=== PATIENT | female | born 1950 | race Caucasian/White ===

== ENCOUNTER → 2018-08-26 | Outpatient (CLI) | payer MEDICARE ==
--- NOTE | 2018-08-27 12:44 | MM ---
Reason for exam: screening (asymptomatic). Last mammogram was performed 3 years and 5 months ago. History: Patient is postmenopausal. Excisional biopsy of both breasts, October 30, 2007. Stereotactic core biopsy, November 08, 2002. Cancelled Procedure, November 08, 2002. Excisional biopsy of the right breast, 1981. Physical Findings: A clinical breast exam by your physician is recommended on an annual basis and results should be correlated with mammographic findings. MG 3D Screening Mammo W/Cad Bilateral CC and MLO view(s) were taken. Prior study comparison: April 06, 2015, bilateral MG screening mammo w CAD. February 04, 2014, [facility] DIGITAL RIGHT MAMMOGRAM w/CAD. There are scattered fibroglandular densities. There is chronic nodularity bilaterally. No significant changes when compared with prior studies. ASSESSMENT: Benign, BI-RAD 2 RECOMMENDATION: Routine screening mammogram of both breasts in 1 year.
== END | disposition home or self-care (01) ==
LOC: RADMAMWWP 10:51
PROVIDERS: ATTEND Family Medicine
DX: Z12.31 Encounter for screening mammogram for malignant neoplasm of breast (principal)
CPT/HCPCS: 77063; 77067

== ENCOUNTER → 2020-09-12 | Outpatient (CLI) | payer MEDICARE ==
--- NOTE | 2020-09-18 11:08 | MM ---
Reason for exam: screening (asymptomatic). Last mammogram was performed 2 years and 1 month ago. History: Patient is postmenopausal. Excisional biopsy of both breasts, October 30, 2007. Stereotactic core biopsy, November 08, 2002. Cancelled Procedure, November 08, 2002. Excisional biopsy of the right breast, 1981. Physical Findings: A clinical breast exam by your physician is recommended on an annual basis and results should be correlated with mammographic findings. MG 3D Screening Mammo W/Cad Bilateral CC and MLO view(s) were taken. Prior study comparison: August 26, 2018, bilateral MG 3d screening mammo w/cad. April 06, 2015, bilateral MG screening mammo w CAD. The breast tissue is heterogeneously dense. This may lower the sensitivity of mammography. Finding #1: There is a lobulated mass in the left breast. Finding #2: There are calcifications in both breasts. No significant changes in finding since August 26, 2018 and April 06, 2015. ASSESSMENT: Benign, BI-RAD 2 RECOMMENDATION: Routine screening mammogram of both breasts in 1 year.
== END | disposition home or self-care (01) ==
LOC: RADMAMWWP 16:21
PROVIDERS: ATTEND Family Medicine
DX: Z12.31 Encounter for screening mammogram for malignant neoplasm of breast (principal)
CPT/HCPCS: 77063; 77067

== ENCOUNTER → 2022-01-22 | Outpatient (CLI) | payer MEDICARE ==
[2022-01-22 10:11] VITALS: BP 164/83; PULSE 79; RESP 17; TEMP 98.3
--- NOTE | 2022-01-22 11:17 | P.HPOB ---
History of Present Illness H&P Date: 01/22/22 Chief Complaint: The patient is here for her routine gynecologic exam and ma mmogram. This is a 71-year-old 0102 with an LMP of 1998. The patient is here to establish with this office. It has been about 6 years since her last pelvic exam. She states she has noticed a lump on the right vulva over the past 6 months. She states it is about Pea size. It is not really painful, but occasionally does feel irritated. She has had small lumps like these before, but they usually went away. She has also noticed some generalized vulvar pruritus over the past 6 months. She denies vaginal discharge or vaginal odor. She has tried [id number] Vagisil which did not significantly help. She is otherwise without complaints and denies any was menopausal bleeding. Review of Systems The patient has gained 50 pounds over the last few years. She says she tends to be a "stress eater". She denies respiratory, cardiac, or G.I. problems. Past Medical History Past Medical History: Hypertension, Sleep Apnea/CPAP/BIPAP Additional Past Medical History / Comment(s): Obesity. 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 History of Any Multi-Drug Resistant Organisms: None Reported Past Surgical History: Breast Surgery, Tubal Ligation Additional Past Surgical History / Comment(s): 2 benign breast biopsies. D&C. Colonoscopy 2016(normal per pt). Past Psychological History: Depression Smoking Status: Never smoker Past Alcohol Use History: None Reported Past Drug Use History: None Reported Additional History: She has been since 1970 and is not sexually active. Her is disabled. She is retired. - Past Family History Mother Family Medical History: Dementia Additional Family Medical History / Comment(s): Maternal aunt had breast cancer. Father Family Medical History: Hypertension, Myocardial Infarction ([place]) Medications and Allergies Home Medications Medication Instructions Recorded Confirmed Type lisinopriL 10 mg PO DAILY 01/22/22 01/22/22 History Allergies Allergy/AdvReac Type Severity Reaction Status Date / Time No Known Allergies Allergy Unverified 01/22/22 09:56 Exam Vital Signs Temp Pulse Resp BP Pulse Ox 01/22/22 10:07 98.3 F 79 17 164/83 97 Intake and Output 02/28/22 03/01/22 03/01/22 22:59 06:59 14:59 Other: Weight 104.326 kg Height 5 feet 5 inches, weight 230 pounds, BMI 38.3. This is a well-developed well-nourished white female who is alert and oriented times 3 in no acute distress. HEENT: Within normal limits. NECK: Supple without mass or thyromegaly. CHEST AND LUNGS: Clear to auscultation. HEART: Regular rate and rhythm. BREASTS: Are without mass or discharge. AXILLARY EXAM: Negative for adenopathy. BACK: Negative for CVA tenderness. ABDOMEN: Soft, nontender, without palpable masses. PELVIC EXAM: External genitalia reveals mild atrophy with generalized erythema without pallor. There is a 6 mm benign-appearing inclusion cyst in the right labia majora which is very benign appearing and nontender. There is a 3 mm benign-appearing inclusion cyst in the left labia majora which is also nontender. Cervix and vagina appear normal with mild to moderate atrophy. There is no unusual discharge. There is no evidence of prolapse. The uterus is midposition, nongravid size and nontender. There are no palpable adnexal masses or tenderness. Bimanual examination is somewhat limited secondary to her size. RECTAL EXAM: Rectovaginal exam is negative for mass or tenderness and is negative for occult blood. EXTREMITIES: Nontender. IMPRESSION: 1. 71-year-old menopausal female with acute vulvitis which is generalized. At this time I doubt lichen sclerosus of the vulva. Differential diagnosis will also include Ana vaginitis and nonspecific vulvitis. 2. Benign-appearing vulvar inclusion cysts. PLAN: 1. Pap smear cotest was performed. She does not have a history of cervical neoplasia and does believe she had regular Pap smears up until age 65. She states I am probably not going to be able to obtain the records since she has had them in various locations. If this Pap smear cotest is negative, we will plan on repeating it in approximately 5 years and if they are both negative, we will discontinue Pap smears altogether. 2. Self breast awareness was discussed with the patient. We have also discusse d symptoms associated with inflammatory breast cancer. 3. Screening mammogram will be done today. 4. Affirm vaginitis panel was obtained from the vagina. 5. We have had a long discussion regarding the vulvar itching. I have recommended that she avoid over washing, avoid scratching and rubbing, avoid chlorinated water such as pools or hot tubs. Trial of Kenalog 0.1% cream twice a day as needed. She will also use a thin layer of petroleum jelly once a day as a protective layer. The electronic prescription for Kenalog cream will be sent to [facility] pharmacy in [place]. 6. She will return if symptoms are not improving or if problems. 7. The patient was advised to return in 1-2 years for her well woman examination and as needed.
--- NOTE | 2022-01-23 09:10 | MM ---
Reason for exam: screening (asymptomatic). Last mammogram was performed 1 year and 4 months ago. History: Patient is postmenopausal. Family history of breast cancer in maternal aunt at age 87. Excisional biopsy of both breasts, October 30, 2007. Stereotactic core biopsy, November 08, 2002. Cancelled Procedure, November 08, 2002. Excisional biopsy of the right breast, 1981. Physical Findings: A clinical breast exam by your physician is recommended on an annual basis and results should be correlated with mammographic findings. MG 3D Screening Mammo W/Cad Bilateral CC and MLO view(s) were taken. Prior study comparison: September 12, 2020, bilateral MG 3d screening mammo w/cad. August 26, 2018, bilateral MG 3d screening mammo w/cad. The breast tissue is heterogeneously dense. This may lower the sensitivity of mammography. Stable punctate calcifications. There is chronic nodularity bilaterally. No significant changes when compared with prior studies. ASSESSMENT: Benign, BI-RAD 2 RECOMMENDATION: Routine screening mammogram of both breasts in 1 year.
[2022-01-23 12:20] LABS: Gardnerella Positive (Negative); Source Vagina; Trichomonas Negative (Negative)
--- NOTE | 2022-01-23 12:46 | P.PN ---
Progress Note - Text Progress Note Date: 01/23/22 OUTPATIENT FOLLOW-UP NOTE TEST(S)/RESULTS: Test results from 01/22/2022 include a firm vaginitis panel which was negative for Ana and Trichomonas, but positive for Gardnerella. METHOD OF NOTIFICATION: The patient was notified by phone. PATIENT COMMENTS: DIAGNOSIS: Bacterial vaginosis associated with vulvar pruritus. DISCUSSION: Metronidazole 500 mg by mouth twice a day 7 days. The electronic prescription will be sent to [facility] pharmacy in [place]. PLAN: Await Pap smear results. She will also use the Kenalog cream as directed.
== END | disposition home or self-care (01) ==
LOC: WWCWWP 09:43
PROVIDERS: ATTEND Obstetrics & Gynecology
DX: Z12.31 Encounter for screening mammogram for malignant neoplasm of breast (principal); Z53.9 Procedure and treatment not carried out, unspecified reason
CPT/HCPCS: 77063; 77067; 87480; 87510; 87660

== ENCOUNTER → 2023-04-02 | Outpatient (CLI) | payer MEDICARE ==
--- NOTE | 2023-04-02 15:04 | P.SLEEP ---
History of Present Illness DATE: 04/02/2023 CONSULTATION/NEW PATIENT EVALUATION HISTORY OF PRESENT ILLNESS/SLEEP-WAKE EVALUATION: 72-year-old lady had been ev aluated in the sleep center for possible obstructive sleep apnea hypopnea syndrome. Patient had been diagnosed with the CV obstructive sleep apnea hypopnea syndrome in another institution about 15 years ago. At that time she was tried to use CPAP but for different reason stopped using it in short time. SLEEP SCHEDULE: Usually sleep schedule from 11 PM to 7 AM, 7 days a week. FALLING ASLEEP: Usually no problems with falling asleep. DURING SLEEP: Patient has loud snoring, episodes of stop breathing during the sleep, multiple awakenings from sleep up to 5 times with 5 episodes of nocturia. No history of hypnogogical hallucinations, sleep paralysis, or cataplexy. DURING THE DAY/WAKE STATE: In the morning patient wake up tired. [place] sleepiness scale is in very high range of 17, which indicates sleepiness. Patient very seldom takes any naps. PAST MEDICAL HISTORY: Hypertension. PAST SURGICAL HISTORY: Tubal ligation. MEDICATIONS: Lisinopril 20 mg once a day. SOCIAL HISTORY: Negative for smoking or using alcohol . FAMILY HISTORY: Arthritis. REVIEW OF SYSTEMS: Loud snoring, multiple awakenings from sleep sleepiness during the day. No fevers. No double vision. No recent chest pain. No shortness of breath. No abdominal pain. No bleeding episodes. No blood in urine. No seizure episodes. PHYSICAL EXAMINATION: GENERAL: A pleasant patient without any distress. VITAL SIGNS: BP 145/61, HR 88, RR 12, weight 203.6 pounds, height 5 foot 3.5 inches, body mass index 35.3. HEENT: PERRLA, EOMI. Evaluation of oropharynx showed tongue protrudes midline, low position of soft palate Mallampati 4. NECK: Supple. No JVD. Thyroid is not palpable. 16.5 inches in circumference. LUNGS: Clear to percussion and to auscultation. Good air exchange. No wheezing or rhonchi. HEART: S1, S2 regular. No murmurs, gallops or rubs. ABDOMEN: Soft and nontender. Bowel sounds are present. No organomegaly appreciated. EXTREMITIES: No clubbing or cyanosis. 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 Cranial nerves 2 to 7 intact. There is no fasciculation or atrophy noted. No focal deficits observed. ASSESSMENT: 1. Loud snoring, multiple awakenings from sleep with nocturia up to 5 times, extremely low position of soft palate Mallampati 4, wide neck 16.5 inches in circumference, significant sleepiness [place] Sleepiness Scale is a very high range of 17, history of obstructive sleep apnea hypopnea syndrome in the past. Obstructive sleep apnea hypopnea syndrome. 2. Hypertension. 3. Obesity body mass and is 35.3. 4. Status post tubal ligation. 5 history of grinding teeth. PLAN: 1. Polysomnography for evaluation of patient's breathing during sleep. 2. CPAP/BiPAP titration if sleep study confirms obstructive sleep apnea- hypopnea syndrome. 3. Preferable position during sleep on the side. 4. No driving if patient feels any sleepiness. Patient is aware of civil and criminal liability for unsafe driving. 5. Sleep hygiene with regular sleep time for at least 7.5-8 hours. 6. Watching and losing weight. Thank you very much for referring this patient for consultation. Sincerely, Demetrius Doty MD, PhD, FAASM. Diplomat of [place] [employer], Sleep Medicine Board by [place] [employer] [place] [employer] Compliance Specialist of [facility] [place] Past Medical History Past Medical History: Hypertension, Sleep Apnea/CPAP/BIPAP Additional Past Medical History / Comment(s): Obesity. 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 History of Any Multi-Drug Resistant Organisms: None Reported Past Surgical History: Breast Surgery, Tubal Ligation Additional Past Surgical History / Comment(s): 2 benign breast biopsies. D&C. Colonoscopy 2016(normal per pt). Past Psychological History: Depression Smoking Status: Never smoker Past Alcohol Use History: None Reported Past Drug Use History: None Reported - Past Family History Mother Family Medical History: Dementia Additional Family Medical History / Comment(s): Maternal aunt had breast cancer. Father Family Medical History: Hypertension, Myocardial Infarction ([place]) Medications and Allergies Home Medications Medication Instructions Recorded Confirmed Type Triamcinolone 0.1% Lotion [Kenalog 1 applic TOPICAL BID PRN #30 gram 01/22/22 Rx 0.1% Lotion] lisinopriL [Prinivil] 10 mg PO DAILY 01/22/22 01/22/22 History metroNIDAZOLE [Flagyl] 500 mg PO BID 7 Days #14 tab 01/23/22 Rx Allergies Allergy/AdvReac Type Severity Reaction Status Date / Time No Known Allergies Allergy Unverified 01/22/22 09:56 Sleep Note - Sleep Note Sleep Note: Temperature: Pulse Rate: Respiratory Rate: Blood Pressure: SpO2: Height: Weight: BMI: Neck Circumference:
== END | disposition home or self-care (01) ==
LOC: SLEEP 14:23
PROVIDERS: ATTEND Internal Medicine
DX: G47.33 Obstructive sleep apnea (adult) (pediatric) (principal); R06.83 Snoring; I10 Essential (primary) hypertension; E66.9 Obesity, unspecified; Z68.35 Body mass index [BMI] 35.0-35.9, adult; Z98.51 Tubal ligation status; Z82.61 Family history of arthritis
CPT/HCPCS: 99211

== ENCOUNTER → 2023-09-18 | Outpatient (CLI) | payer MEDICARE ==
--- NOTE | 2023-09-18 11:05 | P.PN ---
Subjective DATE: 09/18/2023 FOLLOW UP VISIT. Patient with obstructive sleep apnea hypopnea syndrome return to sleep center for follow-up visit. Recently patient had sleep study which documented obstructive sleep apnea hypopnea syndrome. Patient was initiated on PAP therapy and today is first visit after treatment was started. Patient was able to use PAP equipment every night for the whole night. Patient patient has some problems related to humidity. There is water in the tube during the night and sometimes water in the mask. [place] sleepiness scale is increased to 17. I checked information from PAP unit. PAP unit pressure 6-13, average 10.1 cm H2O. Usage is 87% and 83 % for more then 4 hours, average 4.5 hours per night. Leak is 25.7 l/m, which is in acceptable range. Apnea Hypopnea Index is 0.9, which is normal. I explained to the patient how to adjust temperature in the tube. Temperature was adjusted up from 70 to 82 to prevent condensation of water in the tube. MEDICATIONS:1. Lisinopril 20 mg once a day During physical exam: GENERAL: A pleasant patient without any distress. SIGNS: BP 132/72, HR 86, RR 18, weight 218.4, temperature 97.8, oxygen saturation at room air 95%. HEENT: PERRLA, EOMI.low position of soft palate, Mallapati 4 . NECK: Supple. No JVD. LUNGS: Clear to percussion and to auscultation. Good air exchange. No wheezing or rhonchi. HEART: S1, S2 regular. ABDOMEN: Soft and nontender. Slightly obese EXTREMITIES: No clubbing or cyanosis. 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 No focal deficit. Impressions: 1. Obstructive sleep apnea-hypopnea syndrome. Patient demonstrated great compliance with treatment, benefiting from treatment. 2. Hypertension. 3. Obesity. 4. Patient is still has some symptoms of excessive daytime sleepiness by high [place] Sleepiness Scale.. 5. Status post tubal ligation. Plan: 1. Continue using PAP equipment every night for the whole night. 2. To change air filter at least 1-2 times per month. 3. PAP unit should stay lower then position of the head. 4. Advised patient to remove all remaining water from humidifier canister daily and make it dry after each usage. Refill canister with fresh distilled water before each usage. 5. Sleep hygiene with regular time in bed for at least 8 hours. 6. Precautions related to driving. No driving if feel any sleepiness. 7. I will maintain prescription for PAP supplies including mask, tube, filters. 8. Follow up visit in 6 months or earlier if patient has any problems. 9. Watching and losing weight. 10. If patient will continue to have sleepiness while using CPAP in the future, we may consider multiple sleep latency test. Thank you very much for allowing me to participate in the management of your patient. Demetrius Doty MD, PhD, FAASM. Diplomat of [place] [employer], Sleep Medicine Board by [place] [employer] Gallery Director of [facility] [place]
== END ==
LOC: 3 N SLEEP 10:04
PROVIDERS: ATTEND Internal Medicine
DX: G47.33 Obstructive sleep apnea (adult) (pediatric) (principal); E66.9 Obesity, unspecified; I10 Essential (primary) hypertension; Z79.899 Other long term (current) drug therapy; Z98.51 Tubal ligation status; Z99.89 Dependence on other enabling machines and devices
CPT/HCPCS: 99212

== ENCOUNTER → 2024-04-01 | Outpatient (CLI) | payer MEDICARE ==
[2024-04-01 11:26] VITALS: BP 124/74; PULSE 74; RESP 16; TEMP 97.6
--- NOTE | 2024-04-01 11:50 | P.PN ---
Subjective DATE: 04/01/2024 FOLLOW UP VISIT. Patient with obstructive sleep apnea hypopnea syndrome return to sleep center for follow-up visit. Information from previous visit have been reviewed. Since previous visit patient developed episodes of atrial fibrillation. Patient mostly stopped using her CPAP equipment for the last months secondary to dryness in the mouth. Presently she has full facemask and she feels mostly comfortable with this mask. [place] sleepiness scale is 9, which is borderline. I checked information from PAP unit. PAP unit pressure 6-13, average 8.6 cm H2O. Usage is only for 3 nights. Leak is 8.4 l/m, which is in acceptable range. Apnea Hypopnea Index is 0.9, which is normal and the same during the previous visit when patient used machine every night. Humidity level is at 8, which is maximal. MEDICATIONS:1. Lisinopril 40 mg once a day During physical exam: GENERAL: A pleasant patient without any distress. VITAL SIGNS: BP 124/74, HR 74, RR 16, weight 220, temperature 97.6, oxygen saturation at room air 97% . HEENT: PERRLA, EOMI.low position of soft palate, Mallapati 4 . NECK: Supple. No JVD. LUNGS: Clear to percussion and to auscultation. Good air exchange. No wheezing or rhonchi. HEART: S1, S2 regular. ABDOMEN: Soft and nontender.[] EXTREMITIES: No clubbing or cyanosis. 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 No focal deficit. Impressions: 1. Obstructive sleep apnea-hypopnea syndrome. Patient practically stopped using her CPAP equipment. 2. History of episode of atrial fibrillation. 3. Hypertension. 4. Status post tubal ligation. 5. Obesity Plan: 1. Continue using PAP equipment every night for the whole night. I extensively explained to the patient necessity to use CPAP equipment. Risk of atrial fibrillation for patient with sleep apnea significantly higher. 2. Patient should get chinstrap, prescription was written. 3. Level of humidity I changed down to 6. There is a possibility that for level of humidity at 8, no water in the morning in humidifier and that could be the reason for dryness in the mouth. 4. Advised patient to remove all remaining water from humidifier canister daily and make it dry after each usage. Refill canister with fresh distilled water before each usage. 5. Sleep hygiene with regular time in bed for at least 8 hours. 6. Precautions related to driving. No driving if feel any sleepiness. 7. I will maintain prescription for PAP supplies including mask, tube, filters. 8. Follow up visit in 2 months or earlier if patient has any problems. 9. Watching and losing weight. Thank you very much for allowing me to participate in the management of your patient. Demetrius Doty MD, PhD, FAASM. Diplomat of [place] [employer], Sleep Medicine Board by [place] [employer] Unpaid Intern of [facility] [place] Objective - Vital Signs Vital signs: Vital Signs Temp 97.6 F 04/01/24 11:20 Pulse 74 04/01/24 11:20 Resp 16 04/01/24 11:20 BP 124/74 04/01/24 11:20 Pulse Ox 97 04/01/24 11:20 FiO2 Intake & Output 03/31/24 04/01/24 04/01/24 18:59 06:59 18:59 Weight 99.79 kg
== END ==
LOC: 3 N SLEEP 11:10
PROVIDERS: ATTEND Internal Medicine
DX: G47.33 Obstructive sleep apnea (adult) (pediatric) (principal); I10 Essential (primary) hypertension; E66.9 Obesity, unspecified; Z98.51 Tubal ligation status; Z99.89 Dependence on other enabling machines and devices; Z79.899 Other long term (current) drug therapy; Z86.79 Personal history of other diseases of the circulatory system; Z68.39 Body mass index [BMI] 39.0-39.9, adult
CPT/HCPCS: 99212